=== PATIENT | female | born 1965 | race Caucasian/White ===

== ENCOUNTER → 2023-08-23 12:57 | Outpatient (REF) | payer BC, SELFPAY | LOC: HWRAD 12:57 | PROVIDERS: ATTENDING PHYSICIAN Obstetrics & Gynecology; FAMILY PHYSICIAN Family Medicine | DX: N92.4 Excessive bleeding in the premenopausal period (principal) | CPT/HCPCS: 76830; 76856 ==

== ENCOUNTER → 2024-01-16 13:14 | Outpatient (REF) | payer BC, SELFPAY ==
[2024-01-16 14:22] LABS: % Basophils 0.5 % (0-2); % Immature Granulocytes 0.5 % (0-0.5); % Lymphocytes 28.4 % (20.5-51.1); % Monocytes 10.4 % (1.7-9.3); % Neutrophils 57.2 % (42.2-75.2); Absolute Eosinophils 0.2 10^3/uL (0-0.7); Absolute Lymphocytes 2.2 10^3/uL (1.2-3.4); Absolute Monocytes 0.8 10^3/uL (0.1-0.6); Absolute Neutrophils 4.4 10^3/uL (1.4-6.5); Hematocrit 39.1 % (37.0-47.0); Hemoglobin 13.5 g/dL (12.0-16.0); Mean Corp Hgb Conc. 34.5 g/dL (33.0-37.0); Mean Corpuscular Hgb 33.9 pg (27.0-31.0); Mean Corpuscular Volume 98.2 fL (81.0-99.0); Mean Platelet Volume 9.4 fL (7.4-10.4); Nucleated Red Blood Cells % 0 %; Platelet Count 331 10^3/uL (130-400); Red Blood Cell Count 3.98 10^6/uL (4.20-5.40); Red Cell Dist. Width 14.1 % (11.5-14.5); White Blood Cell Count 7.7 10^3/uL (4.8-10.8)
[2024-01-16 14:48] LABS: ALT (SGPT) 17 U/L (0-35); AST (SGOT) 26 U/L (14-36); Albumin 4.9 g/dl (3.5-5.0); Alkaline Phosphatase 48 U/L (38-126); Blood Urea Nitrogen 10 mg/dl (7-17); Calcium 9.9 mg/dl (8.4-10.2); Carbon Dioxide 28 mmol/L (22-30); Chloride 102 mmol/L (98-107); Glucose 89 mg/dl (70-99); Potassium 4.1 mmol/L (3.5-5.1); Sodium 140 mmol/L (135-145); Total Bilirubin 0.5 mg/dl (0.2-1.3); Total Protein 7.6 g/dl (6.3-8.2); eGFR > 60.00
[2024-01-16 14:57] LABS: Total Iron Binding Capacity 308 ug/dl (265-497)
[2024-01-16 15:22] LABS: Iron 103 ug/dl (37-170); Percent Saturation 33 % (20-50)
[2024-01-16 16:24] LABS: Free T3 3.61 pg/ml (2.77-5.27); Free T4 0.67 ng/dl (0.78-2.19); Vitamin D, 25-OH*** 65.7 ng/mL (30-80)
[2024-01-16 16:28] LABS: FSH 50.2 mIU/ml; Progesterone 4.95 ng/ml
[2024-01-16 16:37] LABS: TSH 0.23 uIU/ml (0.47-4.68)
[2024-01-16 16:43] LABS: Estradiol 37.2 pg/ml
[2024-01-16 17:13] LABS: Folate > 20.0 ng/ml (2.76-20); Vitamin B12 818 pg/ml (239-931)
[2024-01-19 00:30] LABS: DHEA Sulfate 417 ug/dL (19-205)
[2024-01-19 04:36] LABS: IGF-1 Z Score Calculation 0.6; Insulin-like Growth Factor I 146 ng/mL (47-236)
== END ==
LOC: REG 13:14
PROVIDERS: ATTENDING PHYSICIAN Family Medicine Sports Medicine; FAMILY PHYSICIAN Family Medicine
DX: N95.9 Unspecified menopausal and perimenopausal disorder (principal); E55.9 Vitamin D deficiency, unspecified; D50.9 Iron deficiency anemia, unspecified; R53.83 Other fatigue
CPT/HCPCS: 36415; 80053; 82306; 82607; 82627; 82670; 82728; 82746; 83001; 83540; 83550; 84144; 84270; 84305; 84402; 84403; 84439; 84443; 84481; 85025

== ENCOUNTER → 2024-02-28 08:13 | Outpatient (REF) | payer BC, SELFPAY | LOC: RAD 08:13 | PROVIDERS: ATTENDING PHYSICIAN Nurse Practitioner Family; FAMILY PHYSICIAN Family Medicine | DX: J18.0 Bronchopneumonia, unspecified organism (principal) | CPT/HCPCS: 71046 ==

== ENCOUNTER → 2024-04-30 07:08 | Outpatient (REF) | payer BC, SELFPAY ==
[2024-04-30 07:56] LABS: % Basophils 0.8 % (0-2); % Eosinophils 2.7 % (0-6); % Immature Granulocytes 1.3 % (0-0.5); % Monocytes 9.6 % (1.7-9.3); % Neutrophils 66.6 % (42.2-75.2); Absolute Basophils 0.1 10^3/uL (0-0.2); Absolute Eosinophils 0.2 10^3/uL (0-0.7); Absolute Immature Granulocytes 0.1 10^3/uL (0-0.05); Absolute Lymphocytes 1.6 10^3/uL (1.2-3.4); Absolute Monocytes 0.8 10^3/uL (0.1-0.6); Absolute Neutrophils 5.7 10^3/uL (1.4-6.5); Hematocrit 40.5 % (37.0-47.0); Hemoglobin 13.9 g/dL (12.0-16.0); Mean Corp Hgb Conc. 34.3 g/dL (33.0-37.0); Mean Corpuscular Hgb 33.7 pg (27.0-31.0); Mean Corpuscular Volume 98.1 fL (81.0-99.0); Mean Platelet Volume 8.9 fL (7.4-10.4); Nucleated Red Blood Cells % 0 %; Platelet Count 351 10^3/uL (130-400); Red Blood Cell Count 4.13 10^6/uL (4.20-5.40); Red Cell Dist. Width 14.2 % (11.5-14.5); White Blood Cell Count 8.5 10^3/uL (4.8-10.8)
[2024-04-30 08:25] LABS: ALT (SGPT) 16 U/L (0-35); AST (SGOT) 25 U/L (14-36); Alkaline Phosphatase 33 U/L (38-126); Blood Urea Nitrogen 10 mg/dl (7-17); Calcium 10.3 mg/dl (8.4-10.2); Carbon Dioxide 28 mmol/L (22-30); Chloride 100 mmol/L (98-107); Glucose 103 mg/dl (70-99); Potassium 4.6 mmol/L (3.5-5.1); Sodium 139 mmol/L (135-145); Total Bilirubin 0.3 mg/dl (0.2-1.3); Total Protein 7.4 g/dl (6.3-8.2); eGFR > 60.00
[2024-04-30 08:38] LABS: FSH 64.3 mIU/ml; Progesterone 8.06 ng/ml; Vitamin D, 25-OH*** 79.1 ng/mL (30-80)
[2024-04-30 08:43] LABS: Free T3 4.66 pg/ml (2.77-5.27)
[2024-04-30 09:16] LABS: Vitamin B12 825 pg/ml (239-931)
[2024-04-30 11:22] LABS: TSH Reflex To Free T4 2.19 uIU/ml (0.47-4.68)
[2024-04-30 11:24] LABS: Estradiol 21.8 pg/ml
[2024-05-01 21:00] LABS: Estriol <0.20 ng/mL
[2024-05-01 21:12] LABS: DHEA Sulfate 335 ug/dL (19-205)
[2024-05-02 01:12] LABS: IGF-1 Z Score Calculation 0.1; Insulin-like Growth Factor I 120 ng/mL (47-236)
== END ==
LOC: REG 07:08
PROVIDERS: ATTENDING PHYSICIAN Family Medicine Sports Medicine; FAMILY PHYSICIAN Family Medicine
DX: N95.1 Menopausal and female climacteric states (principal); R53.83 Other fatigue; E55.9 Vitamin D deficiency, unspecified; E53.8 Deficiency of other specified B group vitamins
CPT/HCPCS: 36415; 80053; 82306; 82607; 82627; 82670; 82677; 83001; 84144; 84270; 84305; 84402; 84403; 84443; 84481; 85025

== ENCOUNTER → 2024-05-20 08:06 | Outpatient (REF) | payer BC, SELFPAY | LOC: WDC 08:06 | PROVIDERS: ATTENDING PHYSICIAN Obstetrics & Gynecology; FAMILY PHYSICIAN Family Medicine | DX: Z12.31 Encounter for screening mammogram for malignant neoplasm of breast (principal) | CPT/HCPCS: 77063; 77067 ==

== ENCOUNTER → 2024-05-22 07:42 | Outpatient (REF) | payer BC, SELFPAY | LOC: RAD 07:42 | PROVIDERS: ATTENDING PHYSICIAN Orthopaedic Surgery Orthopaedic Surgery of the Spine; FAMILY PHYSICIAN Family Medicine; REFERRING PHYSICIAN Nurse Practitioner Family | DX: G95.9 Disease of spinal cord, unspecified (principal); M54.12 Radiculopathy, cervical region | CPT/HCPCS: 71046; 72125 ==

== ENCOUNTER → 2024-05-23 10:15 | Outpatient (REF) | payer BC, SELFPAY | LOC: WDC 10:15 | PROVIDERS: ATTENDING PHYSICIAN Obstetrics & Gynecology; FAMILY PHYSICIAN Family Medicine | DX: R92.8 Other abnormal and inconclusive findings on diagnostic imaging of breast (principal) | CPT/HCPCS: 76642 ==

== ENCOUNTER → 2024-07-26 07:10 | Outpatient (REF) | payer BC, SELFPAY ==
[2024-07-26 07:59] LABS: % Basophils 0.9 % (0-2); % Eosinophils 6.1 % (0-6); % Immature Granulocytes 0.3 % (0-0.5); % Lymphocytes 29.6 % (20.5-51.1); % Monocytes 11.3 % (1.7-9.3); % Neutrophils 51.8 % (42.2-75.2); Absolute Basophils 0.1 10^3/uL (0-0.2); Absolute Eosinophils 0.4 10^3/uL (0-0.7); Absolute Lymphocytes 1.9 10^3/uL (1.2-3.4); Absolute Monocytes 0.7 10^3/uL (0.1-0.6); Absolute Neutrophils 3.4 10^3/uL (1.4-6.5); Hemoglobin 12.9 g/dL (12.0-16.0); Mean Corp Hgb Conc. 33.1 g/dL (33.0-37.0); Mean Corpuscular Hgb 32.4 pg (27.0-31.0); Mean Platelet Volume 9.1 fL (7.4-10.4); Nucleated Red Blood Cells % 0 %; Platelet Count 315 10^3/uL (130-400); Red Blood Cell Count 3.98 10^6/uL (4.20-5.40); Red Cell Dist. Width 12.4 % (11.5-14.5); White Blood Cell Count 6.5 10^3/uL (4.8-10.8)
[2024-07-26 08:43] LABS: ALT (SGPT) 16 U/L (0-35); AST (SGOT) 21 U/L (14-36); Albumin 4.3 g/dl (3.5-5.0); Alkaline Phosphatase 38 U/L (38-126); Blood Urea Nitrogen 15 mg/dl (7-17); Calcium 9.4 mg/dl (8.4-10.2); Carbon Dioxide 28 mmol/L (22-30); Chloride 104 mmol/L (98-107); Glucose 93 mg/dl (70-99); HDL Cholesterol 100 mg/dl; LDL Cholesterol, Calculated 143 mg/dl; Sodium 138 mmol/L (135-145); Total Bilirubin 0.2 mg/dl (0.2-1.3); Total Cholesterol 257 mg/dl (50-199); Total Protein 6.7 g/dl (6.3-8.2); Triglyceride 72 mg/dl (10-149); Very Low Density Lipoprotein 14 mg/dl (0-30); eGFR > 60.00
[2024-07-26 09:04] LABS: TSH Reflex To Free T4 2.79 uIU/ml (0.47-4.68)
== END ==
LOC: REG 07:10
PROVIDERS: ATTENDING PHYSICIAN Nurse Practitioner Adult Health
DX: Z00.00 Encounter for general adult medical examination without abnormal findings (principal)
CPT/HCPCS: 36415; 80053; 80061; 84443; 85025

== ENCOUNTER → 2024-07-29 14:32 | Outpatient (REF) | payer BC, SELFPAY | LOC: EMG 14:32 | PROVIDERS: ATTENDING PHYSICIAN Orthopaedic Surgery Hand Surgery; FAMILY PHYSICIAN Nurse Practitioner Adult Health | DX: M75.121 Complete rotator cuff tear or rupture of right shoulder, not specified as traumatic (principal) | CPT/HCPCS: 95886; 95909 ==

== ENCOUNTER → 2024-08-01 07:47 | Outpatient (REF) | payer BC, SELFPAY | LOC: HWRAD 07:47 | PROVIDERS: ATTENDING PHYSICIAN Nurse Practitioner Adult Health; FAMILY PHYSICIAN Nurse Practitioner Adult Health | DX: R93.89 Abnormal findings on diagnostic imaging of other specified body structures (principal); R91.8 Other nonspecific abnormal finding of lung field | CPT/HCPCS: 71250 ==

== ENCOUNTER → 2024-08-02 12:21 | Outpatient (REF) | payer BC, SELFPAY | LOC: REG 12:21 | PROVIDERS: ATTENDING PHYSICIAN Nurse Practitioner Adult Health | DX: R93.89 Abnormal findings on diagnostic imaging of other specified body structures (principal); R91.8 Other nonspecific abnormal finding of lung field | CPT/HCPCS: 87205 ==

== ENCOUNTER → 2024-08-05 12:00 | Outpatient (REF) | payer BC, SELFPAY | LOC: RAD 12:00 | PROVIDERS: ATTENDING PHYSICIAN Nurse Practitioner Adult Health | DX: R05.1 Acute cough (principal); J10.1 Influenza due to other identified influenza virus with other respiratory manifestations | CPT/HCPCS: 71046 ==

== ENCOUNTER → 2024-08-22 07:53 | Outpatient (REF) | payer BC, SELFPAY | LOC: DHVS 07:53 | PROVIDERS: ATTENDING PHYSICIAN Surgery Vascular Surgery; FAMILY PHYSICIAN Nurse Practitioner Adult Health; REFERRING PHYSICIAN Orthopaedic Surgery Hand Surgery | DX: G54.0 Brachial plexus disorders (principal) | CPT/HCPCS: 93923 ==

== ENCOUNTER → 2024-09-18 11:42 | Outpatient (REF) | payer BC, SELFPAY | LOC: PAVMRI 11:42 | PROVIDERS: ATTENDING PHYSICIAN Surgery Vascular Surgery; FAMILY PHYSICIAN Nurse Practitioner Adult Health | DX: G54.0 Brachial plexus disorders (principal) | CPT/HCPCS: 71552; A9575 ==

== ENCOUNTER → 2024-10-08 08:42 | Outpatient (REF) | payer BC, SELFPAY ==
[2024-10-10 06:06] LABS: Lipoprotein a (Lp a) <6 mg/dL (<=29)
== END ==
LOC: RCS 08:42
PROVIDERS: ATTENDING PHYSICIAN Internal Medicine Cardiovascular Disease; FAMILY PHYSICIAN Nurse Practitioner Adult Health
DX: R91.1 Solitary pulmonary nodule (principal); I25.10 Atherosclerotic heart disease of native coronary artery without angina pectoris; E78.00 Pure hypercholesterolemia, unspecified
CPT/HCPCS: 36415; 83695; 93306

== ENCOUNTER 2025-02-02 09:28 | Emergency (ER) | payer BC, SELFPAY ==
[2025-02-02] VITALS (7 sets, daily range): BP systolic 104–144; BP diastolic 62–90; BMI 18.2
[2025-02-02 09:53] LABS: Hematocrit 40.0 % (37.0-47.0); Hemoglobin 13.8 g/dL (12.0-16.0); Mean Corp Hgb Conc. 34.5 g/dL (33.0-37.0); Mean Corpuscular Volume 96.9 fL (81.0-99.0); Nucleated Red Blood Cells % 0 %; Platelet Count 326 10^3/uL (130-400); Red Cell Dist. Width 12.7 % (11.5-14.5)
[2025-02-02 10:15] LABS: ALT (SGPT) 19 U/L (0-35); AST (SGOT) 27 U/L (14-36); Albumin 4.5 g/dl (3.5-5.0); Alkaline Phosphatase 33 U/L (38-126); Blood Urea Nitrogen 10 mg/dl (7-17); Calcium 9.9 mg/dl (8.4-10.2); Carbon Dioxide 27 mmol/L (22-30); Chloride 103 mmol/L (98-107); Glucose 161 mg/dl (70-99); Potassium 4.1 mmol/L (3.5-5.1); Sodium 134 mmol/L (135-145); Total Protein 7.0 g/dl (6.3-8.2); eGFR > 60.00
--- NOTE | 2025-02-02 11:16 | ED.GENMED ---
History of Present Illness
General
Chief Complaint: Rectal Bleeding
Source: patient
Time Seen by Provider: 02/02/25 11:11
Nursing documentation reviewed up to this point in time: agreed with
History of Present Illness
History of Present Illness:
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
Patient t below patient. patient presents to the ER for evaluation. 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 She tells me she has a history of having a parasitic infection she recently had a upper endoscopy January 21
which showed, reflux esophagitis with normal biopsy results. She tells me she was apparently diagnosed with a 'small bleed 'and instructed to take and continue her omeprazole. Patient does bring her reports here, procedure was done January 16 which
shows an erythematous mucosa in the stomach which was biopsied but no obvious bleeding. Patient reports on Monday she started nausea and vomiting and felt gassy and constipated and therefore took a suppository. Monday she vomited and she
describes this as coffee-ground emesis. Today she complains of abdominal pain.Patient brought a picture on her phone of vomit however this does look like coffee-ground emesis via the picture. She was also concerned because she noticed that her
urine was orange in color and she was concerned about bleeding in her urine.
She denies any lightheaded dizziness. Denies any chest pain shortness of breath.
Past History
Past History
ED Past Medical History: GERD and Hypercholesterolemia
ED Past Surgical History: None
Social History
Tobacco: Non-smoker
Alcohol: None
Drug: None
Personal:
Living: with family
Employment: Employed
Family History
Family History: CAD
Phy Exam
General Physical Exam
General Presentation: no apparent distress
General age: appears stated age
General Skin: warm and dry
General Habitus: normal
General Mental: alert
General Hydration: appears well hydrated
Gastrointestinal Exam
Gastrointestinal Exam: soft and other (brown stool heme negative ; mild epigastric tenderness)
Course
Orders/Labs/Results
Orders:
Orders
02/02/25 09:42
Complete Blood Count/With Diff Urgent
Comprehensive Metabolic Panel Urgent
02/02/25 11:36
Famotidine [Pepcid] 20 mg IV NOW STA
Ondansetron Injectable [Zofran] 4 mg IV NOW STA
02/02/25 11:37
CT Abd/pel W Iv And Oral Contr Urgent
Comment:
Reason For Exam: abd pain nausea
IV Insert/Care/Rem.- Treatment PRN
0.9% Sodium Chloride 1000 ml [Nss] 1,000 ml IV BOLUS
Iohexol [Omnipaque] See Protocol PO NOW STA
02/02/25 12:34
Urinalysis Reflex To Culture Urgent
Date Specimen was Collected: 02/02/25
Time Specimen was Collected: 12:33
Comment: Clean catch
02/02/25 14:59
Mag Hydrox/Al Hydrox/Simeth [Maalox] 30 ml Phenobarb/Hyoscy/Atropine/Scop [] 10 ml PO NOW
Ondansetron Injectable [Zofran] 4 mg .ROUTE .STK-MED ONE
Ondansetron Injectable [Zofran] 4 mg IV NOW STA
02/02/25 15:03
Mag Hydrox/Al Hydrox/Simeth [Maalox] 30 ml .ROUTE .STK-MED ONE
Phenobarb/Hyoscy/Atropine/Scop [] 10 ml .ROUTE .STK-MED ONE
Abnormal Lab Results
02/02/25
09:42
RBC 4.13 L 10^6/uL
(4.20-5.40)
MCH 33.4 H pg
(27.0-31.0)
Absolute Monos (auto) 0.7 H 10^3/uL
(0.1-0.6)
Lymphocytes % 18.3 L %
(20.5-51.1)
Monocytes % 9.4 H %
(1.7-9.3)
Sodium 134 L mmol/L
(135-145)
Glucose 161 H mg/dl
(70-99)
Alkaline Phosphatase 33 L U/L
(38-126)
02/02/25 09:42
02/02/25 09:42
Vital Signs
Initial and Last Documented VS:
Initial Vital Signs
Pulse Resp BP Pulse Ox
81 18 113/84 98
02/02/25 09:32 02/02/25 09:32 02/02/25 09:32 02/02/25 09:32
Last Documented Vital Signs
Temp Pulse Resp BP Pulse Ox
98.2 F 81 18 113/70 97
02/02/25 16:44 02/02/25 09:32 02/02/25 09:32 02/02/25 16:09 02/02/25 15:01
MDM/Problems Addressed
MDM/Problems Addressed:
As documented patient is a 51-year-old female with chronic GI related issues reflux reflux esophagitis etc. 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 She initially reported questionable coffee-ground emesis and orange
urine and was concern for hematuria. She presented very well-appearing to the ER awake alert no acute distress abdomen soft mild epigastric tenderness rectal exam shows brown stool heme-negative urine was completely negative for blood and negative
for infection. CAT scan was negative for findings as well. Labs unremarkable with a HGB of 13.8 I did review patient's recent endoscopy she did come with reports which showed reflux esophagitis with no bleeding. She was given Pepcid and Zofran
here she is on a PPI. She has some persistent discomfort however feels well up to go home with outpatient followed by her GI specialist.
Chronic conditions affecting care:
Chronic reflux
*Radiology
Radiology exam reviewed: radiology read reviewed
*Pulse Oximetry
SaO2: 98
Oxygen Mode of Delivery: Room air
Patient hypoxic: no
*Critical Care Note
Total Time (30-74mins, 75-104mins- exclusive of procedures): Not Applicable
ED Attending Note
-
Portions of this chart may have been created with voice recognition software.� Occasional wrong word or��sound alike� substitutions may have occurred due to the inherent limitations of voice recognition software.
Discharge Plan
Departure
Patient Disposition: Home (Routine Discharge)
Date of Disposition: 02/02/25
Time of Disposition: 16:42
Patient with high blood pressure during this ER visit?: No
Condition: Fair
Covid-19: Not Applicable
Discharge Problem:
Abdominal pain
Instructions: Abdominal Pain
Prescriptions:
New
ondansetron 4 mg tablet,disintegrating
4 mg PO Q8H PRN (Reason: nausea and vomiting) Qty: 10 0RF
No Action
alprazolam 1 MG tablet
1 mg PO HS
famotidine 40 MG tablet
40 mg PO HS
sertraline 100 MG tablet
100 mg PO DAILY
buspirone 10 MG tablet
10 mg PO DAILY
multivitamin with folic acid [Tab-A-Aretha] 1 TABLET tablet
1 tab PO DAILY
Lactobacillus acidophilus [Probiotic] 1 EACH capsule
1 ea PO DAILY
Prilosec
40 mg PO DAILY
cetirizine 10 MG tablet
10 mg PO DAILY
budesonide-formoterol [Symbicort] 1 PUFF HFA aerosol inhaler
2 puff inhalation DAILYPRN PRN (Reason: SOB)
Patient Comments:
Pt states just takes when has bronchitis
triamcinolone acetonide [Nasacort] 10.8 ML aerosol,spray
1 unit intranasal DAILY
sennosides [senna] 1 TABLET tablet
2 tab PO BID 0RF
acetaminophen [Tylenol Extra Strength] 500 MG tablet
1,000 mg PO Q6H 0RF
Rx Instructions:
Do not exceed >4000 mg daily.
docusate sodium 100 MG capsule
100 mg PO BID 0RF
gabapentin 100 MG capsule
200 mg PO TID Qty: 45 0RF
oxycodone 5 MG tablet
5 mg PO Q6HPRN PRN (Reason: moderate-severe pain) Qty: 30 0RF
Rx Instructions:
1 tab moderate pain or 2 if pain severe
Dx ACDF
ongoing therapy
ondansetron HCl 4 MG tablet
4 mg PO Q6HPRN PRN (Reason: nausea) Qty: 30 0RF
Rx Instructions:
Take 1/2 hour prior to Oxycodone if experiencing recurrent nausea.
Referrals:
Muriel Perez CRNP [Family Provider, Internal Medicine]
Activity Restrictions/Additional Instructions:
As discussed please follow-up closely with your GI specialist for continued evaluation of continued pain. Call Monday to make an appointment as soon as possible .
your symptoms are likely from your reflux esophagitis which was recently seen on your endoscopy. Continue your current proton pump inhibitor medications.
[place] diet. Avoid all caffeine.
You may take Zofran for nausea. This medication was sent to your pharmacy. Return if any worsening of symptoms.
Interventions
Interventions:
*Risk Screen - Suicide Last Done: 02/02/25 09:32
*General Assessment Last Done: 02/02/25 09:32
*Neglect/Abuse Screening Last Done: 02/02/25 09:32
*ED- Fall Risk Assessment Last Done: 02/02/25 11:33
*ED COVID-19 Vaccine History Last Done: 02/02/25 11:33
BP-Alzwjp-Kyjaceeaiz Assessment Last Done: 02/02/25 11:50
ED- Cardiac Assessment Last Done: 02/02/25 11:50
ED- Pulmonary Assessment Last Done: 02/02/25 11:50
Discharge Date and Time
Print Language: ECUADORE[place]
[2025-02-02] MEDS: OMNIPAQUE 50 ML PO (11:45)
[2025-02-02] MEDS: NSS 1000 IV (11:46)
[2025-02-02] MEDS: PEPCID 20 MG IV (11:46)
[2025-02-02] MEDS: ZOFRAN 4 MG IV ×2 (11:46→15:04)
[2025-02-02 12:40] LABS: Urine Character Clear (Clear)
[2025-02-02] MEDS: MAALOX 40 PO (15:04)
== END 2025-02-02 17:34 | disposition home or self-care (01) ==
LOC: EMR 09:28
PROVIDERS: Nurse Practitioner; EMERGENCY PHYSICIAN Emergency Medicine; FAMILY PHYSICIAN Nurse Practitioner Adult Health
DX: R10.9 Unspecified abdominal pain (principal); E78.00 Pure hypercholesterolemia, unspecified; K21.00 Gastro-esophageal reflux disease with esophagitis, without bleeding; K59.00 Constipation, unspecified; Z82.49 Family history of ischemic heart disease and other diseases of the circulatory system
CPT/HCPCS: 99284; 96374; 96375; 96376; 96361; 74177; 80053; 81003; 85025; Q9967

== ENCOUNTER → 2025-04-16 10:32 | Outpatient (REF) | payer BC, SELFPAY | LOC: RAD 10:32 | PROVIDERS: ATTENDING PHYSICIAN Psychiatry & Neurology Neurology; FAMILY PHYSICIAN Internal Medicine; REFERRING PHYSICIAN Orthopaedic Surgery | DX: G90.511 Complex regional pain syndrome I of right upper limb (principal) | CPT/HCPCS: 78315; A9503 ==